=== PATIENT | female | born 1945 | race Caucasian/White ===

== ENCOUNTER → 2019-01-01 | Day surgery (SDC) | payer MEDICARE, OTHER ==
[2018-12-30 14:47] LABS: BASOPHILS # (AUTO) 0.1 (0.0-0.1); BASOPHILS % 1.1 % (0.0-1.0); EOSINOPHILS # (AUTO) 0.3 (0.0-0.4); EOSINOPHILS % 3.7 % (0.0-6.0); HEMATOCRIT 37.5 % (34.2-44.1); HEMOGLOBIN 11.9 g/dL (12.0-16.0); LYMPHOCYTES # (AUTO) 1.5 (1.0-3.2); LYMPHOCYTES % 16.5 % (18.0-39.1); MEAN CORPUSCULAR HEMOGLOBIN 28.3 pg (28-32); MEAN CORPUSCULAR HGB CONC 31.7 g/dL (31-35); MEAN CORPUSCULAR VOLUME 89.3 fL (81-99); MONOCYTES # (AUTO) 0.7 (0.2-0.8); MONOCYTES % 7.4 % (4.4-11.3); NEUTROPHILS # (AUTO) 6.5 (2.1-6.9); PLATELET COUNT 171 x10e3/uL (140-360); RED CELL DISTRIBUTION WIDTH 15.1 % (11.7-14.4)
[2018-12-30 14:56] LABS: INR 1.02; PARTIAL THROMBOPLASTIN TIME 31.7 seconds (23.8-35.5); PROTHROMBIN TIME 13.9 seconds (11.9-14.5)
[2018-12-30 15:03] LABS: ANION GAP 13.8 mmol/L (8-16); CALCIUM 9.8 mg/dL (8.4-10.2); CREATININE, SERUM 1.7 mg/dL (0.57-1.11); POTASSIUM 4.8 mmol/L (3.5-5.1)
--- NOTE | 2018-12-30 17:54 | Diagnostic Imaging Report ---
EXAM: CHEST 2 VIEWS, PA and lateral DATE: 12/30/2018 Time stamp on exam: 2:44 PM INDICATION: Preoperative COMPARISON: None FINDINGS: LINES/TUBES: None LUNGS: No consolidations or edema. PLEURA: No effusions or pneumothorax. HEART AND MEDIASTINUM: The heart is massively enlarged. BONES AND SOFT TISSUES: Degenerative changes of the spine. IMPRESSION: Cardiac enlargement without evidence to suggest failure. Signed by: Dr. Shar Jacobs DO on 12/30/2018 5:50 PM
--- NOTE | 2018-12-31 15:42 | Pre Op History & Physical ---
REASON FOR ADMISSION: Ms. Plaza is a [facility] 73-year-old woman, who is admitted at this time for further evaluation and re-evaluation of coronary artery disease and shortness of breath. HISTORY OF PRESENT ILLNESS: The patient has recently developed increasing shortness of breath with recent Lexiscan Myoview suggesting large anteroapical scar with no distinct reversible ischemia. Calculated ejection fraction was 35% with akinesis of apical wall. This is in contrast to the echocardiogram performed on December 06, 2018, which suggested EF 55% to 60%, trace aortic insufficiency and trace mitral regurgitation. PAST MEDICAL HISTORY: Long and complex with evidently a total of 3 coronary stents dating back to 2000. The exact times a locations of the stents are not available to us, was performed elsewhere and by other operators. She has had some atrial fibrillation in the past, but currently resolved. She has a longstanding history of hypertension, diabetes, hyperlipidemia, ulcerative colitis, gout, anemia, and edema. She is thought possibly to even have celiac sprue. MEDICATIONS: Recent medications at home include torsemide 20 mg twice a day, simvastatin 40 mg half tablet daily, metoprolol tartrate 25 mg half tablet twice a day, iron 325 daily, Humulin R 18 units 3 times a day, Nexium 20 mg daily, losartan 25 mg daily. PAST SURGICAL HISTORY: Includes cholecystectomy, hysterectomy, , and she had a right vitrectomy on the right eye, April 2017, with improved vision. FAMILY HISTORY: Mother passed with uterine cancer. REVIEW OF SYSTEMS: The patient is known to have mild renal insufficiency. Recent creatinine is 1.6-1.7. PHYSICAL EXAMINATION: VITAL SIGNS: At this time shows an obese woman, who is 5 feet 1 inch tall, weighing 282 pounds, blood pressure 150/60, pulse 70 with prematures. HEAD, EYES, EARS, NOSE, AND THROAT: Unremarkable. NECK: No jugular venous distention. There are no bruits. THORAX: Heart sounds S1, S2 are equal, 1/6 systolic murmur. LUNGS: Clear. ABDOMEN: Protuberant. Normal bowel sounds. EXTREMITIES: No cyanosis, clubbing, or edema today. LABORATORY AND IMAGING DATA: Chest x-ray shows cardiomegaly, but without evidence of decompensation. New laboratories drawn on December 30 show a BUN 31, creatinine 1.7, glucose 172. INR is 1.0. Hemoglobin 11.9 with lower end of limit, normal being 12.0. ASSESSMENT: 1. Coronary disease with abnormal Cardiolite. 2. Longstanding hypertension. 3. Hyperlipidemia. 4. History of paroxysmal atrial fibrillation. 5. Type 2 adult onset diabetes. PLAN: We will perform left heart catheterization to re-evaluate status of coronary artery disease and coronary stents. We will plan to use the minimal amount of iodine contrast possible in view of her mild renal insufficiency. MD JERRICA Jones/MODL /[id number] cc: Sly Wan MD
[2019-01-01] VITALS (15 sets, daily range): BP systolic 111–156; BP diastolic 47–87
[~2019-01-01] VITALS: Ht 154.9 cm; Wt 124.7 kg
[~2019-01-01] MED LIST: ACETAMINOPHEN 325 MG TAB PO ONE; ASA81 MG; ASA81 MG PO; AZITHROMYCIN250 MG PO; FENTANYL CITRATE/PF 100MCG/2 ML INJ ONE; HEPARIN SOD/SOD CHLORIDE 2,000 ML ONE; HYDRALAZINE HCL 20 MG/ML VIAL ONE; IOPAMIDOL 370 MG/ML 200 ML INFUS..BTL INJ ONE; K-DUR20 ME2 PO; LIDOCAINE HCL 2% LOCAL 20 ML VIAL ONE; LOSARTAN POTASS25 MG; LOSARTAN-HCTZ1 EAC3 PO; MIDAZOLAM HCL 2 MG/2 ML VIAL ONE; NEXIUM20 MG; PREVACID30 MG PO; SODIUM CHLORIDE 0.9% 1000ML 1,000 ML ONE; TORSEMIDE PO; Z.0.APRISO0.375 GM PO; Z.0.DEMADEX20 MG; Z.0.DEMADEX20 MG PO; Z.0.HUMALOG100 UNIT/ SQ; Z.0.HUMULIN N100 UNI SQ; Z.0.LOPRESSOR50 MG; Z.0.METOPROLOL TART5 PO; Z.0.SIMVASTATIN20 MG; Z.0.SIMVASTATIN20 MG PO; [UNRECOGNIZED DRUG - OTHER]
--- OUTSIDE RECORDS SUMMARY | 2019-01-01 07:29 | XMS REPORT | Continuity of Care Document ---
Author Author [facility] Interface Address Unknown Phone Unavailable Problems Problem Status Onset Date Classification Date Reported Comments Source Body mass index 40+ - severely obese 09/17/2018 Diagnosis 09/17/2018 [facility] Elevated blood pressure 09/17/2018 Diagnosis 09/17/2018 [facility] Acute bronchitis 09/17/2018 Diagnosis 09/17/2018 [facility] Proteinuria 05/13/2018 Diagnosis 05/13/2018 [facility] Dysuria 05/13/2018 Diagnosis 05/13/2018 [facility] Acute cystitis 05/13/2018 Diagnosis 05/13/2018 [facility] Body Mass Index 40+ - Severely Obese 05/13/2018 Problem 09/17/2018 [facility] Medications Medication Details Route Status Patient Instructions Ordering Provider Order Date Source Accu-Chek Fastclix Lancet Drum Accu-Chek Fastclix Lancet Drum TEST BLOOD SUGAR THREE TIMES A DAY. Active [facility] Accu-Chek SmartView Test Strips Accu-Chek SmartView Test Strips TEST BLOOD SUGAR THREE TIMES A DAY. Active [facility] NITROFURANTOIN, MACROCRYSTALS 25 MG / Nitrofurantoin, Monohydrate 75 MG Oral Capsule [Macrobid] Macrobid 100 mg capsule Take 1 capsule every 12 hours by oral route as directed for 7 days. Active [facility] Metoprolol Tartrate 25 MG Oral Tablet metoprolol tartrate 25 mg tablet TAKE ONE (1) TABLET(S) BY MOUTH TWICE A DAY. Active [facility] Polymyxin B 35389 UNT/ML / Trimethoprim 1 MG/ML Ophthalmic Solution polymyxin B sulfate 10,000 unit-trimethoprim 1 mg/mL eye drops Active [facility] prednisolone acetate 10 MG/ML Ophthalmic Suspension prednisolone acetate 1 % eye drops,suspension Active [facility] Phenazopyridine hydrochloride 100 MG Oral Tablet [Pyridium] Pyridium 100 mg tablet Take 1 tablet 3 times a day by oral route as needed for 2 days. Active [facility] Simvastatin 40 MG Oral Tablet simvastatin 40 mg tablet Active [facility] torsemide 20 MG Oral Tablet torsemide 20 mg tablet Active [facility] tramadol hydrochloride 50 MG Oral Tablet tramadol 50 mg tablet Active [facility] benzonatate 200 MG Oral Capsule benzonatate 200 mg capsule Take 1 capsule 3 times a day by oral route for 10 days. Active [facility] Humalog KwikPen Insulin Humalog KwikPen Insulin Active [facility] NITROFURANTOIN, MACROCRYSTALS 25 MG / Nitrofurantoin, Monohydrate 75 MG Oral Capsule nitrofurantoin monohydrate/macrocrystals 100 mg capsule TAKE ONE (1) CAPSULE BY MOUTH EVERY 12 HOURS DIRECTED FOR 7 DAYS. Active [facility] Allergies, Adverse Reactions, Alerts Substance Category Reaction Severity Reaction type Status Date Reported Comments Source Penicillins Hives Severe Allergy to substance 05/13/2018 [facility] Immunizations Immunization Date Given Site Status Last Updated Comments Source influenza, injectable, quadrivalent 07/04/2018 completed [facility] Results Order Name Results Value Reference Range Date Interpretation Comments Source Vital Signs Vital Sign Value Date Comments Source Diastolic (mm Hg) 76 09/16/2018 [facility] Height 61 09/16/2018 [facility] Systolic (mm Hg) 120 09/16/2018 [facility] Weight 278 09/16/2018 [facility] Diastolic (mm Hg) 80 05/13/2018 [facility] Height 61 05/13/2018 [facility] Systolic (mm Hg) 120 05/13/2018 [facility] Weight 278 05/13/2018 [facility] Encounters Location Location Details Encounter Type Encounter Number Reason For Visit Attending Provider ADM Date DC Date Status Source [place] - [facility] - [id number] [facility]: [address] [place] [address], Ph. [id number] Yulissa Andrea 05/13/2018 [facility] [place] [facility] [id number] [facility]: [address] [place] [address], Ph. [id number] Isidro Paz 09/16/2018 [facility] Procedures Procedure Code Date Perfomer Comments Source Hysterectomy [facility] Stent Placemt Retro Carotid 02139 [facility] Cholecystectomy [facility]
--- OUTSIDE RECORDS SUMMARY | 2019-01-01 07:29 | XMS REPORT | Encounter Summary ---
Author Organization Unknown Address [address] [place] [address] Phone [phone] Care Team Providers Care Bookkeeping Clerks Supervisor Name Role Phone Fausto Guevara MD (Endocrinology) 3 [phone] Reason for Visit Medical Complaint Instructions 1. Acute bronchitis bronchitis: care instructions benzonatate 200 mg capsule 2. Elevated blood pressure elevated blood pressure: care instructions dash diet: care instructions blood pressure monitoring education 3. Body mass index 40+ - severely obese body mass index: care instructions learning about healthy weight Discussion Note: None recorded. Plan of Care Patient Instructions Your Care Instructions Bronchitis is inflammation of the bronchial tubes, which carry air to the lungs. The tubes swell and produce mucus, or phlegm. The mucus and inflamed bronchial tubes make you cough. You may have trouble breathing. Most cases of bronchitis are caused by viruses like those that cause colds. Antibiotics usually do not help and they may be harmful. Bronchitis usually develops rapidly and lasts about 2 to 3 weeks in otherwise healthy people. Follow-up care is a elliott part of your treatment and safety. Be sure to make and go to all appointments, and call your doctor if you are having problems. It's also a good idea to know your test results and keep a list of the medicines you take. How can you care for yourself at home? Take all medicines exactly as prescribed. Call your doctor if you think you are having a problem with your medicine. Get some extra rest. Take an lwvp-gxq-zjcmtkc pain medicine, such as acetaminophen (Tylenol), ibuprofen (Advil, Motrin), or naproxen (Aleve) to reduce fever and relieve body aches. Read and follow all instructions on the label. Do not take two or more pain medicines at the same time unless the doctor told you to. Many pain medicines have acetaminophen, which is Tylenol. Too much acetaminophen (Tylenol) can be harmful. Take an kqaw-nxg-ztavhhc cough medicine that contains dextromethorphan to help quiet a dry, hacking cough so that you can sleep. Avoid cough medicines that have more than one active ingredient. Read and follow all instructions on the label. Breathe moist air from a humidifier, hot shower, or sink filled with hot water. The heat and moisture will thin mucus so you can cough it out. Do not smoke. Smoking can make bronchitis worse. If you need help quitting, talk to your doctor about stop-smoking programs and medicines. These can increase your chances of quitting for good. When should you call for help? Call 911 anytime you think you may need emergency care. For example, call if: You have severe trouble breathing. Call your doctor now or seek immediate medical care if: You have new or worse trouble breathing. You cough up dark brown or bloody mucus (sputum). You have a new or higher fever. You have a new rash. Watch closely for changes in your health, and be sure to contact your doctor if: You cough more deeply or more often, especially if you notice more mucus or a change in the color of your mucus. You are not getting better as expected. Reminders Provider Appointments None recorded. Lab None recorded. Referral None recorded. Procedures None recorded. Surgeries None recorded. Imaging None recorded. Medications Name Start Date Accu-Chek Fastclix Lancet Drum TEST BLOOD SUGAR THREE TIMES A DAY. Accu-Chek SmartView Test Strips TEST BLOOD SUGAR THREE TIMES A DAY. benzonatate 200 mg capsule Take 1 capsule 3 times a day by oral route for 10 days. Humalog KwikPen Insulin metoprolol tartrate 25 mg tablet TAKE ONE (1) TABLET(S) BY MOUTH TWICE A DAY. nitrofurantoin monohydrate/macrocrystals 100 mg capsule TAKE ONE (1) CAPSULE BY MOUTH EVERY 12 HOURS DIRECTED FOR 7 DAYS. simvastatin 40 mg tablet torsemide 20 mg tablet Medications Administered None recorded. Vitals Height Weight BMI Blood Pressure 5 ft 1 in 278 lbs 52.5 kg/m2 120/76 mm[Hg] Lab Results None recorded. Allergies Code Code System Name Reaction Severity Status Onset Penicillins Hives Severe Active Problems Name Status Onset Date Source Body Mass Index 40+ - Severely Obese Active 05/13/2018 Procedures Date Name Performed by Hysterectomy Information not available Stent Placemt Retro Carotid Information not available Cholecystectomy Information not available Information not available Vaccine List Vaccine Type influenza, injectable, quadrivalent 07/04/2018 Social History Smoking Status Never Smoker Past Encounters 09/16/2018 Acute Bronchitis; Elevated Blood Pressure; Body Mass Index 40+ - Severely Obese Isidro Paz, [facility]: [address] [place] [address], Ph. History of Present Illness Cough Reported By: Patient HPI: Location: chest. Quality: dry cough. Duration: 2 days. Severity: moderate. Onset/Timing: gradual. Context: no sick contacts, no foreign travel, non- smoker. Associated Symptoms: no sputum production, no shortness of breath, no wheezing, no sweats, no significant weight gain, no significant weight loss, no sore throat, no vomiting, no diarrhea, no rash, no nausea, no fever/chills, no muscle aches, no headache, morning cough Review of Systems:ROS as noted in the HPI Review of Systems Basic Reported By: Patient Physical Exam Adult Basic, Adult Female Complete Reported By: Patient Constitutional: General Appearance: healthy-appearing, morbidly obese. Level of Distress: NAD. Ambulation: ambulating normally Psychiatric: Mental Status: active and alert. Orientation: to time, to place, to person Tsq-Jbjx-Xtzao-Throat: Ears: no lesions on external ear, no outer ear tenderness, EACs clear, TMs clear. Hearing: no hearing loss. Nose: no lesions on external nose, nares patent, no septal deviation, nasal passages clear, no sinus tenderness, no nasal discharge. Lips, Teeth, and Gums: no mouth or lip ulcers, no bleeding gums, normal dentition. Oropharynx: moist mucous membranes, no erythema, no exudates, tonsils not enlarged Lungs: Respiratory effort: no dyspnea, no tachypnea, no use of accessory muscles, no intercostal retractions. Auscultation: breath sounds normal Cardiovascular: Heart Auscultation: RRR, no murmurs
--- OUTSIDE RECORDS SUMMARY | 2019-01-01 07:29 | XMS REPORT ---
Author [facility] Address Unknown Phone Unavailable Care Team Providers Care Web Specialist Name Role Phone GUTIÉRREZMichael Unavailable Unavailable Problems This patient has no known problems. Allergies, Adverse Reactions, Alerts This patient has no known allergies or adverse reactions. Medications This patient has no known medications. Results Test Description Test Time Test Comments Text Results Atomic Results Result Comments CHEST 2 VIEWS 2018-12-30 17:49:00 [place] [address] Patient Name: MARISSA WOOTEN MR #: [id number] : 1945 Age/Sex: 73/F Req #: [id number] Adm Physician: Ordered by: LINO GUTIÉRREZ MD Report #: [id number] Location: DIRECTOR OF ANALYTICS Room/Bed: Procedure: [id number] DX/CHEST 2 VIEWS Exam Date: 12/30/18 Exam Time: 1430 REPORT STATUS: Signed EXAM: CHEST 2 VIEWS, PA and lateral DATE: 12/30/[address] amp on exam: 2:44 PM INDICATION: Preoperative COMPARISON: None FINDINGS: LINES/TUBES: None LUNGS: No consolidations or edema. PLEURA: No effusions or pneumothorax. HEART AND MEDIASTINUM: The heart is massively enlarged. BONES AND SOFT TISSUES: Degenerative changes of the spine. IMPRESSION: Cardiac enlargement without evidence to suggest failure. Signed by: Dr. Bethany Jacobs DO on 12/30/2018 5:50 PM Dictated By: BETHANY JACOBS DO 49 Transcribed By: RODY on 12/30/181749 COPY TO: LINO GUTIÉRREZ MD
--- OUTSIDE RECORDS SUMMARY | 2019-01-01 07:29 | XMS REPORT | Encounter Summary ---
Author Organization Unknown Address [address] [place] [address] Phone [phone] Reason for Visit Medical Complaint Instructions 1. Acute cystitis urinary tract infection in women: care instructions urinalysis, dipstick Macrobid 100 mg capsule culture, urine 2. Dysuria painful urination (dysuria): care instructions Pyridium 100 mg tablet 3. Proteinuria proteinuria: care instructions 4. Body mass index 40+ - severely obese body mass index: care instructions Discussion Note Take your antibiotics as directed. Do not stop taking them just because you feel better. You need to take the full course of antibiotics. Drink extra water and other fluids for the next day or two. This may help wash out the bacteria that are causing the infection. (If you have kidney, heart, or liver disease and have to limit fluids, talk with your doctor before you increase your fluid intake.) Avoid drinks that are carbonated or have caffeine. They can irritate the bladder. Urinate often. Try to empty your bladder each time. To relieve pain, take a hot bath or lay a heating pad set on low over your lower belly or genital area. Never go to sleep with a heating pad in place. Plan of Care Reminders Provider Appointments None recorded. Lab Urinalysis, Dipstick 05/13/2018 [facility] Culture, Urine 05/13/2018 [facility] Referral None recorded. Procedures None recorded. Surgeries None recorded. Imaging None recorded. Medications Name Start Date Accu-Chek Fastclix Lancet Drum USE FOUR TIMES A DAY. Accu-Chek SmartView Test Strips USE FOUR TIMES A DAY. Macrobid 100 mg capsule Take 1 capsule every 12 hours by oral route as directed for 7 days. metoprolol tartrate 25 mg tablet TAKE ONE (1) TABLET(S) BY MOUTH TWICE A DAY. polymyxin B sulfate 10,000 unit-trimethoprim 1 mg/mL eye drops prednisolone acetate 1 % eye drops,suspension Pyridium 100 mg tablet Take 1 tablet 3 times a day by oral route as needed for 2 days. simvastatin 40 mg tablet torsemide 20 mg tablet tramadol 50 mg tablet Medications Administered None recorded. Vitals Height Weight BMI Blood Pressure 5 ft 1 in 278 lbs 52.5 kg/m2 120/80 mm[Hg] Lab Results None recorded. Allergies Code Code System Name Reaction Severity Status Onset Penicillins Hives Severe Active Problems Name Status Onset Date Source Body Mass Index 40+ - Severely Obese Active 05/13/2018 Procedures Date Name Performed by Hysterectomy Information not available Stent Placemt Retro Carotid Information not available Cholecystectomy Information not available Information not available Vaccine List None recorded. Social History Smoking Status Never Smoker Past Encounters 05/13/2018 Acute Cystitis; Dysuria; Proteinuria; Body Mass Index 40+ - Severely Obese Yulissa Andrea PA-C: [address] [place] [address], Ph. History of Present Illness Opxznl-YGP-Jkglsks Reported By: Patient HPI: Location: abdomen, urethra. Quality: pressure, burning. Severity: same. Duration: constant. Onset/Timing: worse, sudden. Context: not sexually active, no known exposure to STD, no prior history of STDs, history of urine cultures/antibiotic treatment, wipes anterior to posterior, voids after intercourse. Modifying factors ; took some tramadol. Associated Symptoms: no fever/chills, no jaundice, no blood in the urine, no pain during urination, no vaginal discharge, no blisters on genitals, no rash on genitals, no muscle aches, no headache, flank pain, burning sensation during urination, urgency, urinary frequency, abdominal pain Review of Systems Basic Reported By: Patient Constitutional: Constitutional: no fever Eyes: Eyes: no eye complaints Lnec-Krmn-Zirfk-Throat: Ears: no ear complaints. Nose: no nose/sinus problems. Mouth/Throat: no sore throat, no bleeding gums, no mouth complaints, no teeth problems Cardiovascular: Cardiovascular: no chest pain, no shortness of breath, no known heart murmur Respiratory: Respiratory: no cough, no wheezing, no shortness of breath Gastrointestinal: Gastrointestinal: no vomiting / diarrhea; abdominal pressure Genitourinary: Genitourinary: no discharge, dysuria, urinary urgency Musculoskeletal: Musculoskeletal: no muscle aches, no muscle weakness, no arthralgias/joint pain, no back pain Skin: Skin: no abnormal / changing mole, no jaundice, no rashes Neurologic: Neurologic: no loss of consciousness, no weakness, no numbness, no seizures, no dizziness, no headaches Physical Exam Adult Female Complete Reported By: Patient Constitutional: General Appearance: healthy-appearing, morbidly obese. Level of Distress: NAD. Ambulation: ambulating normally Psychiatric: Mental Status: active and alert. Orientation: to time, to place, to person Lungs: Respiratory effort: no dyspnea. Auscultation: breath sounds normal Cardiovascular: Heart Auscultation: RRR, no murmurs Abdomen: Bowel Sounds: normal. Inspection and Palpation: soft, non-distended, no tenderness, no guarding, no rebound tenderness, no masses, no CVA tenderness. Liver: non-tender, no hepatomegaly. Spleen: non-tender, no splenomegaly. Hernia: none palpable
--- NOTE | 2019-01-01 09:23 | NUR ---
0974 Received pt to Rm # [id number] Identiferx2. [facility] Dr Shearer.No fix med RX. Rt groin with pressure dressing in place. No gross signs of pain,pallor,pressure or dysrhythmia. Resp shallow and regular Sats 100% room air. Abdomen soft denies necessity to defecate or urinate. Left hand infusing 75cchr per controller. NO s/s infiltration. Offered po intake Tolerated well. Bilateral pedal pulses present with swelling 1+ at bedside with daughter Aware of importance to keep right groin straight. Discharge planning discussed Has copies of dc plans and aware of importance of f/o care. pj/rn
--- NOTE | 2019-01-01 11:00 | NUR ---
1100 c/o unable to void bladder scan 783cc Offered bed feliz w/o success. Asked to get pain med for neck discomfort and catheterization order. CAlled Dr Shearer office awaiting return call Vs stable No gross signs pain pallor ,pressure or dysrhythmia. ds/rn
--- NOTE | 2019-01-01 11:30 | NUR ---
1130 Dr Shearer gave orders Straight cath 1000cc clear urine obtained pain relieved and medicated 1000mg Tylenol for Neck discomfort ds/rn
--- NOTE | 2019-01-01 12:45 | NUR ---
1245 Tylenol 975mg po for neck pain availble in hospital Medicated with relief achieved ds/rn
--- NOTE | 2019-01-01 15:00 | NUR ---
1500 iv removed Site/s infiltration. Coban dressing per SLICK Arboleda. Assist to bathroom voided qs, tolerating po fluids. Received dc plan aware of importance of f/o care. No gross signs pain,pallor,pressure or dysrhythmia. Rt groin site healthy no bleeding or hematoma. Bilateral PPx4 present. Denies CP or SOB. 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 Aware of importance of f/o care. Has copies of POC. pj/slick
--- NOTE | 2019-01-01 17:05 | Operative Report ---
DATE OF PROCEDURE: 01/01/2019 SURGEON: Otto Shearer MD PROCEDURE: Cardiac cath. PROCEDURE IN DETAIL: The patient was brought to the rn lab in a fasting, partially sedated state, premedicated with 0.5 mg Versed. The right groin was prepped and scrubbed and 2% xylocaine and 4-Hebrew sheath placed in the right common femoral artery. Left ventricular pressures were checked with pigtail without ventriculogram due to renal insufficiency. The right and left coronaries were injected with the 4-Hebrew right and left Gladys catheters. Inspection of films demonstrates mild diffuse coronary artery disease throughout, but the right coronary artery is a medium-sized vessel with apparently a total of about 4 coronary stents, 3 in the proximal midportion, and 1 in the distal portion. The vessels are all patent with mild diffuse 30% stenosis in mid right coronary and mild in-stent restenoses. The left main is relatively unremarkable. There is a larger ramus branching vessel that is unremarkable and the circumflex is a diminutive vessel. The LAD is small, but has 3 patent stents in its proximal mid and distal portions. There is 1 diagonal, it is about 1 mm vessel. The patient is given a total of 15 mg of hydralazine intravenously during the procedure. Initial blood pressure was 200/77 in the aorta and 200/27 in the ventricle. Pressures held and a pressure bandage placed. She was sent to her room in stable condition. No blood loss. No complication. FINAL IMPRESSION: 1. Mild diffuse coronary artery disease. 2. Four patent stents in the right coronary artery. 3. Three patent stents in the LAD. 4. Hypertension. 5. Left ventriculogram not done due to a creatinine of 1.7. A total of 35 mL iodine contrast material was used. Recommendation is for medical management with attention to blood pressure. MD JERRICA Jones/MODL /[id number]
--- NOTE | 2019-01-02 05:48 | Discharge Summary ---
HISTORY: Ms. Plaza is a 73-year-old morbidly obese woman with known coronary disease, who was admitted on the morning of the for re-evaluation of coronary disease, coronary stenting, shortness of breath and abnormal Cardiolite. HOSPITAL COURSE: The patient had a left heart catheterization performed without difficulty, attended with 15 mg of hydralazine intravenously for initial blood pressure of 200/77. Patient tolerated the procedure well, showed 4 patent stents in the right coronary artery and 3 patent stents in the LAD. No left ventriculogram was performed due to the renal insufficiency with creatinine of 1.7. Total of 35 mL of iodine contrast was utilized. There was no complication. No blood loss. She was monitored for 4 hours after the procedure and given 75 mL an hours of normal saline. She is advised to continue adequate hydration at home and to monitor blood pressure carefully. She will follow up with Dr. Wan and Dr. Guevara for re-evaluation of blood pressure and medical management of coronary disease. DISCHARGE DIAGNOSES: 1. Complex coronary disease with a total of 7 patent stents in the right coronary and LAD. 2. Abnormal left ventricular function. 3. Hypertension. 4. Morbid obesity. 5. Type 2 adult onset diabetes. 6. Hyperlipidemia. MD JERRICA Jones/MICHAEL /[id number] cc: MD Fausto Boateng MD
== END | disposition home or self-care (01) ==
LOC: CATH LAB 07:18
PROVIDERS: ATTEND Internal Medicine Cardiovascular Disease
DX: I25.10 Atherosclerotic heart disease of native coronary artery without angina pectoris (principal); I48.0 Paroxysmal atrial fibrillation; E11.22 Type 2 diabetes mellitus with diabetic chronic kidney disease; I12.9 Hypertensive chronic kidney disease with stage 1 through stage 4 chronic kidney disease, or unspecified chronic kidney disease; N18.3 Chronic kidney disease, stage 3 (moderate); E78.2 Mixed hyperlipidemia; R06.9 Unspecified abnormalities of breathing; I65.23 Occlusion and stenosis of bilateral carotid arteries; Z88.1 Allergy status to other antibiotic agents; Z88.0 Allergy status to penicillin; Z88.8 Allergy status to other drugs, medicaments and biological substances; Z01.812 Encounter for preprocedural laboratory examination; Z01.818 Encounter for other preprocedural examination; Z79.4 Long term (current) use of insulin; Z68.43 Body mass index [BMI] 50.0-59.9, adult; Z95.5 Presence of coronary angioplasty implant and graft
CPT/HCPCS: 36415; 71046; 80048; 85025; 85610; 85730; 86850; 86900; 93458; C1766; J0360; J2001; J2250; J7030; Q9967

== ENCOUNTER 2021-01-04 13:46 | Emergency (ER) | payer MEDICARE, OTHER ==
[~2021-01-04] VITALS: Ht 157.5 cm; Wt 124.7 kg
[~2021-01-04 13:46] MED LIST changes: -ACETAMINOPHEN 325 MG TAB PO ONE; -FENTANYL CITRATE/PF 100MCG/2 ML INJ ONE; -HEPARIN SOD/SOD CHLORIDE 2,000 ML ONE; -HYDRALAZINE HCL 20 MG/ML VIAL ONE; -IOPAMIDOL 370 MG/ML 200 ML INFUS..BTL INJ ONE; -LIDOCAINE HCL 2% LOCAL 20 ML VIAL ONE; -MIDAZOLAM HCL 2 MG/2 ML VIAL ONE; -SODIUM CHLORIDE 0.9% 1000ML 1,000 ML ONE
[2021-01-04 14:24] LABS: BASOPHILS # (AUTO) 0.1 (0.0-0.1); BASOPHILS % 1.1 % (0.0-1.0); EOSINOPHILS # (AUTO) 0.2 (0.0-0.4); EOSINOPHILS % 2.4 % (0.0-6.0); HEMATOCRIT 37.9 % (34.2-44.1); HEMOGLOBIN 11.9 g/dL (12.0-16.0); LYMPHOCYTES # (AUTO) 1.1 (1.0-3.2); LYMPHOCYTES % 11.6 % (18.0-39.1); MEAN CORPUSCULAR HEMOGLOBIN 28.9 pg (28-32); MEAN CORPUSCULAR HGB CONC 31.4 g/dL (31-35); MONOCYTES # (AUTO) 0.7 (0.2-0.8); MONOCYTES % 8.2 % (4.4-11.3); NEUTROPHILS # (AUTO) 6.9 (2.1-6.9); NEUTROPHILS % 76.4 % (38.7-80.0); PLATELET COUNT 223 x10e3/uL (140-360); RED BLOOD COUNT 4.12 x10e6/uL (3.6-5.1); RED CELL DISTRIBUTION WIDTH 15.1 % (11.7-14.4)
[2021-01-04 14:42] LABS: ALBUMIN 3.3 g/dL (3.5-5.0); CALCIUM 8.9 mg/dL (8.4-10.2); CREATININE, SERUM 2.07 mg/dL (0.57-1.11)
[2021-01-04] MEDS ORDERED: FUROSEMIDE INJ 10 MG/ML 4 ML VIAL IV ONE (15:45)
== END 2021-01-04 16:40 | disposition home or self-care (01) ==
LOC: ER 14:19
DX: R60.0 Localized edema (principal); R06.02 Shortness of breath; I10 Essential (primary) hypertension; E11.9 Type 2 diabetes mellitus without complications; I25.2 Old myocardial infarction; K21.9 Gastro-esophageal reflux disease without esophagitis; Z95.5 Presence of coronary angioplasty implant and graft
CPT/HCPCS: 36415; 71045; 80053; 83880; 84484; 85025; 93005; 93970; 99284; J1940

== ENCOUNTER 2021-01-28 15:34 | Inpatient (IN) | payer MEDICARE, OTHER ==
[~2021-01-28] VITALS: Ht 157.5 cm; Wt 124.7 kg
[2021-01-28] MEDS ORDERED: ONDANSETRON HCL INJ 2MG/ML 2ML 2 MG/ML VIAL IV ONE (16:27)
[2021-01-28] MEDS ORDERED: MORPHINE SULFATE INJ 2 MG/ML SYR IV ONE (16:27)
[2021-01-28] MEDS ORDERED: MEROPENEM 500MG 500 MG in SODIUM CHLORIDE 0.9% 50ML 50 ML IV SCH (16:30)
[2021-01-28 16:46] LABS: BASOPHILS # (AUTO) 0.1 (0.0-0.1); BASOPHILS % 1.4 % (0.0-1.0); EOSINOPHILS # (AUTO) 0.2 (0.0-0.4); EOSINOPHILS % 3.3 % (0.0-6.0); HEMATOCRIT 39.2 % (34.2-44.1); LYMPHOCYTES # (AUTO) 1.2 (1.0-3.2); LYMPHOCYTES % 16.5 % (18.0-39.1); MEAN CORPUSCULAR HEMOGLOBIN 28.4 pg (28-32); MEAN CORPUSCULAR HGB CONC 30.6 g/dL (31-35); MEAN CORPUSCULAR VOLUME 92.9 fL (81-99); MONOCYTES # (AUTO) 0.7 (0.2-0.8); NEUTROPHILS # (AUTO) 4.9 (2.1-6.9); NEUTROPHILS % 68.2 % (38.7-80.0); PLATELET COUNT 206 x10e3/uL (140-360); RED BLOOD COUNT 4.22 x10e6/uL (3.6-5.1); RED CELL DISTRIBUTION WIDTH 16.5 % (11.7-14.4)
[2021-01-28] MEDS ORDERED: VANCOMYCIN 1GM/NS 250 ML 250 ML IV ONE (17:00)
[2021-01-28 17:04] LABS: INR 1.05; PROTHROMBIN TIME 14.3 seconds (11.9-14.5)
[2021-01-28] MEDS: MEROPENEM 500MG/ NS 50ML 50 ML IV SCH (17:04)
[2021-01-28 17:05] LABS: PARTIAL THROMBOPLASTIN TIME 31.4 seconds (23.8-35.5)
[2021-01-28 17:07] LABS: ALBUMIN 3.2 g/dL (3.5-5.0); ANION GAP 18.7 mmol/L (8-16); CALCIUM 8.6 mg/dL (8.4-10.2); CREATININE, SERUM 1.91 mg/dL (0.57-1.11); MAGNESIUM 2.3 MG/DL (1.3-2.1); POTASSIUM 4.7 mmol/L (3.5-5.1)
[2021-01-28] MEDS ORDERED: DEXTROSE 50% SYRINGE 50 ML IV PRN (17:30)
[2021-01-28] MEDS ORDERED: HEPARIN SOD (PORCINE) 5,000 UNIT/ML VIAL IV ONE (17:45)
[2021-01-28 18:09] LABS: CREATINE KINASE MB 1.7 ng/mL (0-5.0)
[2021-01-28] MEDS ORDERED: HEPARIN 25,000 UNIT DRIP IV ONE (18:11)
[2021-01-28] MEDS: FAMOTIDINE 20 MG/2 ML VIAL IV SCH (18:21)
[2021-01-28] MEDS: HEPARIN 25,000 UNIT 1,000 UNIT in DEXTROSE 5% 250ML 250 ML IV SCH (18:21)
[2021-01-28] MEDS: SIMVASTATIN 20 MG TAB PO SCH ×2 (21:00→22:49)
[2021-01-28] MEDS: LOSARTAN POTASSIUM 25 MG TAB PO SCH (22:48)
[2021-01-28] MEDS: INSULIN LISPRO 100 UNIT/1 ML 3ML VIAL SQ SCH (22:57)
[2021-01-28] MEDS: MORPHINE SULFATE INJ 2 MG/ML SYR IV PRN (23:48)
[2021-01-29] VITALS (10 sets, daily range): BP systolic 109–136; BP diastolic 48–91
[2021-01-29 01:51] LABS: CREATINE KINASE MB 2.2 ng/mL (0-5.0)
[2021-01-29] MEDS ORDERED: SODIUM CHLORIDE 0.9% 250ML 250 ML ONE (04:19)
[2021-01-29] MEDS: MEROPENEM 500MG/ NS 50ML 50 ML IV SCH ×2 (04:23→16:45)
[2021-01-29] MEDS: MORPHINE SULFATE INJ 2 MG/ML SYR IV PRN ×3 (04:24→21:15)
[2021-01-29 06:17] LABS: BASOPHILS # (AUTO) 0.1 (0.0-0.1); BASOPHILS % 1.5 % (0.0-1.0); EOSINOPHILS # (AUTO) 0.3 (0.0-0.4); EOSINOPHILS % 4.2 % (0.0-6.0); HEMATOCRIT 38.9 % (34.2-44.1); HEMOGLOBIN 11.8 g/dL (12.0-16.0); LYMPHOCYTES # (AUTO) 1.6 (1.0-3.2); LYMPHOCYTES % 21.7 % (18.0-39.1); MEAN CORPUSCULAR HEMOGLOBIN 28.6 pg (28-32); MEAN CORPUSCULAR HGB CONC 30.3 g/dL (31-35); MEAN CORPUSCULAR VOLUME 94.4 fL (81-99); MONOCYTES # (AUTO) 0.8 (0.2-0.8); MONOCYTES % 11.4 % (4.4-11.3); NEUTROPHILS # (AUTO) 4.5 (2.1-6.9); NEUTROPHILS % 60.8 % (38.7-80.0); PLATELET COUNT 200 x10e3/uL (140-360); RED BLOOD COUNT 4.12 x10e6/uL (3.6-5.1); RED CELL DISTRIBUTION WIDTH 16.4 % (11.7-14.4)
[2021-01-29 06:35] LABS: ALBUMIN 3.1 g/dL (3.5-5.0); ALBUMIN/GLOBULIN RATIO 0.9 (0.8-2.0); ANION GAP 14.3 mmol/L (8-16); CALCIUM 9.1 mg/dL (8.4-10.2); CHOL/HDL RATIO 2.1 (3.0-3.6); CREATININE, SERUM 2.06 mg/dL (0.57-1.11); POTASSIUM 5.3 mmol/L (3.5-5.1)
[2021-01-29] MEDS: FAMOTIDINE 20 MG/2 ML VIAL IV SCH (06:42)
[2021-01-29 06:56] LABS: CREATINE KINASE MB 2.4 ng/mL (0-5.0)
[2021-01-29] MEDS ORDERED: ACETAMINOPHEN 325 MG TAB PO PRN (07:00)
[2021-01-29] MEDS ORDERED: TEMAZEPAM 15 MG CAP PO PRN (07:00)
[2021-01-29] MEDS ORDERED: POLYETHYLENE GLYCOL 3350 17 GM PACK PO PRN (07:00)
[2021-01-29] MEDS ORDERED: HYDRALAZINE HCL 20 MG/ML VIAL IV PRN (07:00)
[2021-01-29] MEDS: INSULIN LISPRO 100 UNIT/1 ML 3ML VIAL SQ SCH ×5 (07:30→21:00)
[2021-01-29] MEDS: DOCUSATE SODIUM 100 MG CAP PO SCH ×2 (09:00→19:55)
[2021-01-29] MEDS ORDERED: METOPROLOL TARTRATE 50 MG TAB PO SCH (09:00)
[2021-01-29] MEDS ORDERED: NEURONTIN100 MG PO (09:50)
[2021-01-29] MEDS: ASPIRIN 81 MG ENTERIC COATED PO SCH (10:08)
[2021-01-29] MEDS: LOSARTAN POTASSIUM 25 MG TAB PO SCH (10:08)
[2021-01-29] MEDS: METOPROLOL TARTRATE 25 MG TAB PO SCH ×2 (10:08→17:00)
[2021-01-29] MEDS ORDERED: PANTOPRAZOLE SOD 40 MG TABEC PO NR (14:15)
[2021-01-29] MEDS ORDERED: LACTATED RINGER'S 1,000 ML INJ ONE (14:30)
[2021-01-29] MEDS ORDERED: SOD POLYSTYRENE SULFONATE SUSP 15 GM/60 ML BTL PO NR (14:30)
[2021-01-29] MEDS ORDERED: NPH, HUMAN INSULIN ISOPHANE 100 UNIT/1 ML 3ML VIAL SQ SCH (15:00)
[2021-01-29] MEDS: LACTULOSE SYRUP 20 GM/30 ML UDC PO NR (15:43)
[2021-01-29] MEDS: NPH, HUMAN INSULIN ISOPHANE 100 UNIT/1 ML 3ML VIAL SQ SCH (21:15)
[2021-01-29] MEDS: SIMVASTATIN 20 MG TAB PO SCH (21:15)
[2021-01-29] MEDS: ONDANSETRON HCL INJ 2MG/ML 2ML 2 MG/ML VIAL IV PRN (21:15)
[2021-01-29] MEDS: LACTATED RINGER'S 1,000 ML INJ SCH (21:51)
[2021-01-30] VITALS (9 sets, daily range): BP systolic 111–154; BP diastolic 48–92
[2021-01-30] MEDS: HEPARIN 25,000 UNIT 1,000 UNIT in DEXTROSE 5% 250ML 250 ML IV SCH ×2 (00:21→14:32)
[2021-01-30] MEDS: MORPHINE SULFATE INJ 2 MG/ML SYR IV PRN ×5 (01:05→23:47)
[2021-01-30] MEDS: LACTATED RINGER'S 1,000 ML INJ SCH (03:24)
[2021-01-30] MEDS: MEROPENEM 500MG/ NS 50ML 50 ML IV SCH ×2 (04:38→16:17)
[2021-01-30 05:47] LABS: BASOPHILS # (AUTO) 0.1 (0.0-0.1); BASOPHILS % 1.5 % (0.0-1.0); EOSINOPHILS # (AUTO) 0.3 (0.0-0.4); EOSINOPHILS % 4.3 % (0.0-6.0); HEMATOCRIT 37.6 % (34.2-44.1); HEMOGLOBIN 11.5 g/dL (12.0-16.0); LYMPHOCYTES # (AUTO) 1.5 (1.0-3.2); LYMPHOCYTES % 22.5 % (18.0-39.1); MEAN CORPUSCULAR HEMOGLOBIN 28.6 pg (28-32); MEAN CORPUSCULAR HGB CONC 30.6 g/dL (31-35); MEAN CORPUSCULAR VOLUME 93.5 fL (81-99); MONOCYTES # (AUTO) 0.8 (0.2-0.8); MONOCYTES % 11.5 % (4.4-11.3); NEUTROPHILS # (AUTO) 4.1 (2.1-6.9); NEUTROPHILS % 59.9 % (38.7-80.0); PLATELET COUNT 135 x10e3/uL (140-360); RED BLOOD COUNT 4.02 x10e6/uL (3.6-5.1); RED CELL DISTRIBUTION WIDTH 16.5 % (11.7-14.4)
[2021-01-30 06:17] LABS: ALBUMIN/GLOBULIN RATIO 0.9 (0.8-2.0); ANION GAP 16.4 mmol/L (8-16); CALCIUM 8.6 mg/dL (8.4-10.2); CREATININE, SERUM 2.28 mg/dL (0.57-1.11); PHOSPHORUS 4.3 MG/DL (2.3-4.7); POTASSIUM 4.4 mmol/L (3.5-5.1)
[2021-01-30] MEDS: DOCUSATE SODIUM 100 MG CAP PO SCH ×2 (08:42→14:53)
[2021-01-30] MEDS: PANTOPRAZOLE SOD 40 MG TABEC PO SCH (08:54)
[2021-01-30] MEDS: ASPIRIN 81 MG ENTERIC COATED PO SCH (08:55)
[2021-01-30] MEDS: METOPROLOL TARTRATE 25 MG TAB PO SCH ×2 (09:00→16:20)
[2021-01-30 09:49] LABS: CLARITY,URINE SL CLOUDY (CLEAR); COLOR,URINE AMBER (YELLOW); KETONES,URINE NEGATIVE (NEGATIVE); LEUKOCYTE ESTERASE ,URINE NEGATIVE (NEGATIVE); NITRITE,URINE NEGATIVE (NEGATIVE); PROTEIN,URINE DIPSTICK NEGATIVE (NEGATIVE); URINE UROBILINOGEN 0.2 mg/dL (0.2 - 1)
[2021-01-30 09:55] LABS: EPITHELIAL CELLS,URINE FEW /LPF
[2021-01-30] MEDS: NPH, HUMAN INSULIN ISOPHANE 100 UNIT/1 ML 3ML VIAL SQ SCH ×2 (10:09→20:25)
[2021-01-30] MEDS: INSULIN LISPRO 100 UNIT/1 ML 3ML VIAL SQ SCH ×7 (10:09→20:25)
[2021-01-30] MEDS: SODIUM CHLORIDE 0.9% 1000ML 1,000 ML IV SCH (12:19)
[2021-01-30 12:24] LABS: CREATININE,URINE RANDOM 195.93 mg/dL (47-110); TOTAL PROTEIN, URINE 18.1 mg/dL (1-14)
[2021-01-30] MEDS: SIMVASTATIN 20 MG TAB PO SCH (20:45)
[2021-01-30] MEDS: ONDANSETRON HCL INJ 2MG/ML 2ML 2 MG/ML VIAL IV PRN (23:47)
[2021-01-31] VITALS (8 sets, daily range): BP systolic 109–140; BP diastolic 50–66
[2021-01-31] MEDS: SODIUM CHLORIDE 0.9% 1000ML 1,000 ML IV SCH ×2 (02:43→14:40)
[2021-01-31] MEDS: MEROPENEM 500MG/ NS 50ML 50 ML IV SCH ×2 (04:39→16:21)
[2021-01-31 07:15] LABS: BASOPHILS # (AUTO) 0.1 (0.0-0.1); BASOPHILS % 1.1 % (0.0-1.0); EOSINOPHILS # (AUTO) 0.3 (0.0-0.4); EOSINOPHILS % 3.8 % (0.0-6.0); HEMOGLOBIN 11.6 g/dL (12.0-16.0); LYMPHOCYTES # (AUTO) 1.5 (1.0-3.2); LYMPHOCYTES % 17.9 % (18.0-39.1); MEAN CORPUSCULAR HEMOGLOBIN 28.6 pg (28-32); MEAN CORPUSCULAR HGB CONC 30.5 g/dL (31-35); MEAN CORPUSCULAR VOLUME 93.6 fL (81-99); MONOCYTES % 11.8 % (4.4-11.3); NEUTROPHILS # (AUTO) 5.3 (2.1-6.9); PLATELET COUNT 180 x10e3/uL (140-360); RED BLOOD COUNT 4.06 x10e6/uL (3.6-5.1); RED CELL DISTRIBUTION WIDTH 16.5 % (11.7-14.4)
[2021-01-31 07:27] LABS: ALBUMIN/GLOBULIN RATIO 0.9 (0.8-2.0); ANION GAP 18.3 mmol/L (8-16); CALCIUM 8.8 mg/dL (8.4-10.2); CREATININE, SERUM 2.34 mg/dL (0.57-1.11); MAGNESIUM 2.3 MG/DL (1.3-2.1); POTASSIUM 4.3 mmol/L (3.5-5.1)
[2021-01-31] MEDS: ASPIRIN 81 MG ENTERIC COATED PO SCH (07:56)
[2021-01-31] MEDS: DOCUSATE SODIUM 100 MG CAP PO SCH ×2 (07:56→16:21)
[2021-01-31] MEDS: PANTOPRAZOLE SOD 40 MG TABEC PO SCH (07:57)
[2021-01-31] MEDS: METOPROLOL TARTRATE 25 MG TAB PO SCH ×2 (07:57→16:22)
[2021-01-31] MEDS: INSULIN LISPRO 100 UNIT/1 ML 3ML VIAL SQ SCH ×7 (08:00→20:45)
[2021-01-31] MEDS: NPH, HUMAN INSULIN ISOPHANE 100 UNIT/1 ML 3ML VIAL SQ SCH ×2 (08:54→20:46)
[2021-01-31] MEDS: MORPHINE SULFATE INJ 2 MG/ML SYR IV PRN ×3 (09:03→21:07)
[2021-01-31] MEDS: HEPARIN 25,000 UNIT 1,000 UNIT in DEXTROSE 5% 250ML 250 ML IV SCH (10:31)
[2021-01-31] MEDS: SIMVASTATIN 20 MG TAB PO SCH (20:32)
[2021-01-31] MEDS: ONDANSETRON HCL INJ 2MG/ML 2ML 2 MG/ML VIAL IV PRN (21:07)
[2021-02-01] VITALS (8 sets, daily range): BP systolic 95–131; BP diastolic 46–70
[2021-02-01] MEDS ORDERED: LORAZEPAM 0.5 MG TAB PO ONE (00:45)
[2021-02-01] MEDS: MORPHINE SULFATE INJ 2 MG/ML SYR IV PRN ×3 (02:33→15:15)
[2021-02-01] MEDS: ONDANSETRON HCL INJ 2MG/ML 2ML 2 MG/ML VIAL IV PRN ×3 (02:34→15:15)
[2021-02-01] MEDS: SODIUM CHLORIDE 0.9% 1000ML 1,000 ML IV SCH ×2 (04:00→16:18)
[2021-02-01] MEDS: MEROPENEM 500MG/ NS 50ML 50 ML IV SCH ×2 (04:45→17:08)
[2021-02-01 05:34] LABS: BASOPHILS # (AUTO) 0.1 (0.0-0.1); BASOPHILS % 1.2 % (0.0-1.0); EOSINOPHILS # (AUTO) 0.3 (0.0-0.4); EOSINOPHILS % 3.9 % (0.0-6.0); HEMATOCRIT 36.4 % (34.2-44.1); HEMOGLOBIN 11.2 g/dL (12.0-16.0); LYMPHOCYTES # (AUTO) 1.6 (1.0-3.2); LYMPHOCYTES % 18.9 % (18.0-39.1); MEAN CORPUSCULAR HEMOGLOBIN 28.4 pg (28-32); MEAN CORPUSCULAR HGB CONC 30.8 g/dL (31-35); MEAN CORPUSCULAR VOLUME 92.2 fL (81-99); MONOCYTES # (AUTO) 1.2 (0.2-0.8); MONOCYTES % 14.8 % (4.4-11.3); NEUTROPHILS % 60.6 % (38.7-80.0); PLATELET COUNT 192 x10e3/uL (140-360); RED BLOOD COUNT 3.95 x10e6/uL (3.6-5.1); RED CELL DISTRIBUTION WIDTH 16.2 % (11.7-14.4)
[2021-02-01 06:03] LABS: ALBUMIN/GLOBULIN RATIO 0.9 (0.8-2.0); ANION GAP 17.6 mmol/L (8-16); CREATININE, SERUM 2.44 mg/dL (0.57-1.11); POTASSIUM 4.6 mmol/L (3.5-5.1)
[2021-02-01] MEDS: INSULIN LISPRO 100 UNIT/1 ML 3ML VIAL SQ SCH ×9 (07:30→21:00)
[2021-02-01] MEDS: HEPARIN 25,000 UNIT 1,000 UNIT in DEXTROSE 5% 250ML 250 ML IV SCH ×2 (07:47→22:14)
[2021-02-01] MEDS: NPH, HUMAN INSULIN ISOPHANE 100 UNIT/1 ML 3ML VIAL SQ SCH ×2 (09:00→21:00)
[2021-02-01] MEDS: ASPIRIN 81 MG ENTERIC COATED PO SCH (09:22)
[2021-02-01] MEDS: PANTOPRAZOLE SOD 40 MG TABEC PO SCH (09:22)
[2021-02-01] MEDS: DOCUSATE SODIUM 100 MG CAP PO SCH ×2 (09:22→17:08)
[2021-02-01] MEDS: METOPROLOL TARTRATE 25 MG TAB PO SCH ×2 (09:24→17:08)
[2021-02-01] MEDS ORDERED: FUROSEMIDE INJ 10 MG/ML 4 ML VIAL IV NR (10:15)
[2021-02-01] MEDS: CEFAZOLIN SOD 1 GM/NS 50ML 50 ML IV SCH (19:30)
[2021-02-01] MEDS: SIMVASTATIN 20 MG TAB PO SCH (21:00)
[2021-02-01] MEDS ORDERED: HEPARIN 25,000 UNIT DRIP IV ONE (22:25)
[2021-02-02] VITALS (8 sets, daily range): BP systolic 13–144; BP diastolic 49–69
[2021-02-02] MEDS: INSULIN LISPRO 100 UNIT/1 ML 3ML VIAL SQ SCH ×7 (07:30→20:45)
[2021-02-02 08:17] LABS: ANION GAP 20.5 mmol/L (8-16); CALCIUM 9.4 mg/dL (8.4-10.2); CREATININE, SERUM 2.53 mg/dL (0.57-1.11); POTASSIUM 5.5 mmol/L (3.5-5.1)
[2021-02-02] MEDS: DOCUSATE SODIUM 100 MG CAP PO SCH ×2 (09:34→17:40)
[2021-02-02] MEDS: ASPIRIN 81 MG ENTERIC COATED PO SCH (09:34)
[2021-02-02] MEDS: PANTOPRAZOLE SOD 40 MG TABEC PO SCH (09:34)
[2021-02-02] MEDS: METOPROLOL TARTRATE 25 MG TAB PO SCH ×2 (09:35→17:41)
[2021-02-02] MEDS: NPH, HUMAN INSULIN ISOPHANE 100 UNIT/1 ML 3ML VIAL SQ SCH ×2 (09:40→20:46)
[2021-02-02] MEDS: CEFAZOLIN SOD 1 GM/NS 50ML 50 ML IV SCH ×2 (09:47→21:05)
[2021-02-02 11:49] LABS: CREATININE,URINE RANDOM 110.4 mg/dL (47-110)
[2021-02-02] MEDS ORDERED: LACTULOSE SYRUP 20 GM/30 ML UDC PO ONE ×2 (12:00→22:00)
[2021-02-02] MEDS ORDERED: SOD POLYSTYRENE SULFONATE SUSP 15 GM/60 ML BTL PO ONE (12:00)
[2021-02-02] MEDS: BUMETANIDE INJ 0.25MG/ML 4ML VIAL IV SCH ×2 (12:22→21:05)
[2021-02-02] MEDS ORDERED: BISACODYL 10 MG SUPP PR ONE (18:15)
[2021-02-02] MEDS: SIMVASTATIN 20 MG TAB PO SCH (21:05)
[2021-02-02] MEDS ORDERED: SIMETHICONE 80 MG CHEW PO PRN ×2 (23:45)
[2021-02-03] VITALS: BP 142/51
[2021-02-03] MEDS ORDERED: SIMETHICONE 80 MG CHEW PO PRN (00:15)
[2021-02-03 05:14] LABS: ANION GAP 16.2 mmol/L (8-16); CALCIUM 9.2 mg/dL (8.4-10.2); CREATININE, SERUM 2.59 mg/dL (0.57-1.11); POTASSIUM 4.2 mmol/L (3.5-5.1)
[2021-02-03] MEDS: INSULIN LISPRO 100 UNIT/1 ML 3ML VIAL SQ SCH ×6 (07:30→17:00)
[2021-02-03 08:10] VITALS: BP 133/58
[2021-02-03 08:55] VITALS: BP 133/58
[2021-02-03] MEDS: DOCUSATE SODIUM 100 MG CAP PO SCH ×2 (09:00→17:00)
[2021-02-03] MEDS: NPH, HUMAN INSULIN ISOPHANE 100 UNIT/1 ML 3ML VIAL SQ SCH (09:10)
[2021-02-03] MEDS: MORPHINE SULFATE INJ 2 MG/ML SYR IV PRN ×3 (09:10→17:28)
[2021-02-03] MEDS: ONDANSETRON HCL INJ 2MG/ML 2ML 2 MG/ML VIAL IV PRN ×3 (09:10→17:28)
[2021-02-03] MEDS: ASPIRIN 81 MG ENTERIC COATED PO SCH (09:12)
[2021-02-03] MEDS: METOPROLOL TARTRATE 25 MG TAB PO SCH ×2 (09:13→17:18)
[2021-02-03] MEDS: PANTOPRAZOLE SOD 40 MG TABEC PO SCH (09:14)
[2021-02-03] MEDS: CEFAZOLIN SOD 1 GM/NS 50ML 50 ML IV SCH (09:15)
[2021-02-03] MEDS: HEPARIN 25,000 UNIT 1,000 UNIT in DEXTROSE 5% 250ML 250 ML IV SCH (09:20)
[2021-02-03] MEDS: BUMETANIDE INJ 0.25MG/ML 4ML VIAL IV SCH (09:21)
[2021-02-03 12:27] VITALS: BP 104/53
[2021-02-03 16:39] VITALS: BP 124/48
== END 2021-02-03 18:50 | DRG 299 ==
LOC: ER 15:54 → ERHOLD 17:45 → MED/SURG3 22:19
PROVIDERS: ADMIT Internal Medicine; ATTEND Internal Medicine
DX: E11.52 Type 2 diabetes mellitus with diabetic peripheral angiopathy with gangrene (principal); G93.41 Metabolic encephalopathy; L03.115 Cellulitis of right lower limb; I70.261 Atherosclerosis of native arteries of extremities with gangrene, right leg; N17.9 Acute kidney failure, unspecified; Z68.43 Body mass index [BMI] 50.0-59.9, adult; K51.90 Ulcerative colitis, unspecified, without complications; L97.518 Non-pressure chronic ulcer of other part of right foot with other specified severity; E87.2 Acidosis; N18.4 Chronic kidney disease, stage 4 (severe); E78.5 Hyperlipidemia, unspecified; I25.2 Old myocardial infarction; I12.9 Hypertensive chronic kidney disease with stage 1 through stage 4 chronic kidney disease, or unspecified chronic kidney disease; E11.22 Type 2 diabetes mellitus with diabetic chronic kidney disease; E11.65 Type 2 diabetes mellitus with hyperglycemia; E66.01 Morbid (severe) obesity due to excess calories; I48.0 Paroxysmal atrial fibrillation; Z79.01 Long term (current) use of anticoagulants; Z20.822 Contact with and (suspected) exposure to COVID-19; E11.621 Type 2 diabetes mellitus with foot ulcer; E87.5 Hyperkalemia; Z74.09 Other reduced mobility; Z87.891 Personal history of nicotine dependence
CPT/HCPCS: 36415; 71045; 76770; 80048; 80053; 80061; 81001; 82550; 82553; 82570; 82575; 82948; 83036; 83735; 83880; 84100; 84156; 84443; 84484; 85025; 85610; 85730; 87040; 93005; 93306; 96361; 96366; 99284; J0690; J1644; J1940; J2270; J2405; J3370; J7030; J7050; J7121; U0002